=== PATIENT | male | born 1990 | race Caucasian/White ===

== ENCOUNTER 2017-06-01 19:35 | Emergency (ER) | payer SELFPAY ==
[2017-06-01 19:45] VITALS: TEMP 98.2
--- NOTE | 2017-06-01 20:01 | EDPHY ---
H & P Stated Complaint: BILATERAL TESTICLE PAIN WITH LOWER ABD PAIN Time Seen by Provider: 06/01/17 19:53 HPI/ROS: CHIEF COMPLAINT: Bilateral testicle pain since 10:00 a.m. yesterday HISTORY OF PRESENT ILLNESS: 26-year-old male generally healthy complaining of atraumatic bilateral testicle pain since 10:00 a.m. yesterday. Did not occur during sexual activity. Masturbation more aggressive than usual. No straddle injury. No urethral discharge. No new sexual partners. No perineal pain. No pain with defecation. No dysuria hematuria increased frequency. No abdominal pain. No mass. PHYSICAL EXAM (Prior to examination, patient consented to physical exam, hands were washed and my usual and customary physical exam procedures followed) 1) GENERAL: Well-developed, well-nourished, alert and oriented. Appears to be in no acute distress. 2) HEAD: Normocephalic 3) HEENT: sclera anicteric 4) LUNGS: Breathing comfortably. 5) ABDOMEN: Soft no guarding no rebound negative McBurney's. Bilateral inguinal examination is unremarkable with no mass. [6) : Normal male external genitalia, circumcised, no urethral discharge, bilateral testicles nontender, descended, bilateral cremasteric reflex present and brisk. Perineal examination unremarkable no tenderness. Scrotal examination unremarkable no cellulitis no Lonnie's gangrene. - Personal History Current Tetanus/Diphtheria Vaccine: Yes Current Tetanus Diphtheria and Acellular Pertussis (TDAP): Yes - Medical/Surgical History Hx Asthma: No Hx Chronic Respiratory Disease: No Hx Diabetes: No Hx Cardiac Disease: No Hx Renal Disease: No Hx Cirrhosis: No Hx Alcoholism: No Hx HIV/AIDS: No Hx Splenectomy or Spleen Trauma: No Other PMH: NO PMH. WISDOM TEETH SURGERY - Social History Smoking Status: Never smoked Constitutional: Initial Vital Signs Temperature (C) 36.8 C 06/01/17 19:43 Heart Rate 74 06/01/17 19:43 Respiratory Rate 18 06/01/17 19:43 Blood Pressure 119/64 06/01/17 19:43 O2 Sat (%) 96 06/01/17 19:43 O2 Delivery Mode Room Air Allergies/Adverse Reactions: shellfish derived Allergy (Verified 06/01/17 19:45) Home Medications: Medication Instructions Recorded Ibuprofen [Motrin (*)] 800 mg PO Q6 #10 tab 06/01/17 Medical Decision Making - Diagnostics Imaging Results: Imaging Impressions Testicular Ultrasound 06/01/17 19:54 Impression: 1. Normal-appearing testicles. 2. Epididymal head cyst on the right. Findings discussed with Anabela SEE at 21:09 hour, 06/01/2017. Images reviewed by myself ED Course/Re-evaluation: Care of patient under supervision of secondary supervising physician Dr Sweeney . This patient was re-evaluated with serial examinations was recently at 9:25 p.m.. Discussed his imaging results showing no evidence of torsion, he has urinalysis which is clear no evidence of pyuria or bacteriuria. I recommended supportive undergarments such as athletic supporter, NSAIDs, given follow-up information with on-call Urology Dr. Kaleigh Sharma. Doubt hernia as he has no clinical evidence of such. At this point I do not think that further intervention is indicated. He has no evidence of epididymitis or orchitis. Doubt STD. Differential Diagnosis: Testicular pain including but not limited to epididymitis, orchitis, referred pain from kidney stone, inguinal hernia, and torsion of the testicle. - Data Points Laboratory Results: 06/01/17 20:00 Urine Color YELLOW Urine Appearance CLEAR Urine pH 5.0 (5.0-7.5) Ur Specific [place] 1.021 (1.002-1.030) Urine Protein NEGATIVE (NEGATIVE) Urine Ketones NEGATIVE (NEGATIVE) Urine Blood NEGATIVE (NEGATIVE) Urine Nitrate NEGATIVE (NEGATIVE) Urine Bilirubin NEGATIVE (NEGATIVE) Urine Urobilinogen NEGATIVE EU EU (0.2-1.0) Ur Leukocyte Esterase NEGATIVE (NEGATIVE) Urine RBC 1-3 /hpf /hpf (0-3) Urine WBC 1-3 /hpf /hpf (0-3) Ur Epithelial Cells NONE SEEN /lpf /lpf (NONE-1+) Urine Mucus TRACE /lpf /lpf (NONE-1+) Urine Glucose NEGATIVE (NEGATIVE) Departure - Departure Disposition: Home, Routine, Self-Care Clinical Impression: Epididymal head cyst, Testicular pain Condition: Good Instructions: Testicle Pain (ED) Additional Instructions: Return to the ER immediately if you develop new or worsening pain, urinary abnormality, abdominal pain or any other symptoms that concern you. Referrals: Robin Jason DO [Primary Care Provider] - 1-2 days without fail Prescriptions: Ibuprofen [Motrin (*)] 800 mg PO Q6 #10 tab
[2017-06-01 21:35] VITALS: BP 116/70; PULSE 73; RESP 16; O2SAT 98
[2017-06-02 12:33] LABS: GC AMPLIFICATION GENPROBE NEGATIVE (NEGATIVE)
== END 2017-06-01 21:34 | disposition home or self-care (01) ==
DX: N50.811 Right testicular pain (principal); N50.812 Left testicular pain; N50.3 Cyst of epididymis